=== PATIENT | male | born 1955 | race Caucasian/White ===

== ENCOUNTER 2019-02-25 06:45 | Emergency (ER) | payer OTHER ==
[~2019-02-25] VITALS: Ht 167.6 cm; Wt 86.2 kg
[2019-02-25 06:45] VITALS: BP 142/81
--- NOTE | 2019-02-25 06:48 | NUR ---
PT AMBULATED TO ER BED 7
--- NOTE | 2019-02-25 07:03 | NUR ---
PATIENT PRESENTS TO ED WITH C/O RT SIDED CHEST PAIN RADIATING TO UPPER BACK. PT STATES CP STARTED YESTERDAY. DENIES NAUSEA, VOMITING OR SOB. VSS. PATIENT STATES STABBING PAIN OF 7/10 AT THIS TIME; VSS; PATIENT POSITIONED FOR COMFORT;CONNECTED TO MONITOR. HOB ELEVATED; BEDRAILS UP X1; BED DOWN. PENDING ERMD EVALUATION.
--- NOTE | 2019-02-25 07:14 | NUR ---
XRAY AT BEDSIDE
--- NOTE | 2019-02-25 07:53 | NUR ---
LAB AT BEDSIDE
[2019-02-25 08:16] LABS: BASOPHILS # (AUTO) 0.1 K/uL (0.00-0.22); BASOPHILS % (AUTO) 0.7 % (0.0-2.0); EOSINOPHILS # (AUTO) 0.1 K/uL (0-0.4); EOSINOPHILS % (AUTO) 1.2 % (0.0-4.0); HEMATOCRIT 44.4 % (36-52); HEMOGLOBIN 14.9 g/dL (12.0-18.0); LYMPHOCYTES # (AUTO) 2.5 K/uL (2.0-11.5); LYMPHOCYTES % (AUTO) 34.4 % (20.5-51.1); MEAN CORPUSCULAR HEMOGLOBIN 30 pg (27-31); MEAN CORPUSCULAR HGB CONC 34 g/dL (33-37); MEAN CORPUSCULAR VOLUME 88.4 fL (80-94); MONOCYTES # (AUTO) 0.5 K/uL (0.8-1.0); MONOCYTES % (AUTO) 7.2 % (1.7-9.3); NEUTROPHILS # (AUTO) 4.2 K/uL (1.8-7.7); NEUTROPHILS % (AUTO) 56.5 % (42.2-75.2); PLATELET COUNT (AUTO) 233 K/uL (140-450); RED BLOOD CELL COUNT(AUTO) 5.02 MIL/uL (4.20-6.10); RED CELL DISTRIBUTION WIDTH 13.6 % (11.6-13.7); WHITE BLOOD COUNT (AUTO) 7.4 K/uL (4.8-10.8)
[2019-02-25 08:28] LABS: BARBITURATE, URINE NEG. ng/ml (NEG <=200); BENZODIAZEPINE, URINE NEG. ng/mL (NEG <=200); CANNABINOID, URINE NEG. ng/mL (NEG <=50); COCAINE, URINE NEG. ng/mL (NEG <=300); OPIATE, URINE NEG. ng/mL (NEG <=2000); PHENCYCLIDINE SCREEN,URINE NEG. ng/mL (NEG <=25)
[2019-02-25 08:32] LABS: PROTHROMBIN TIME 9.9 secs (10.8-13.4)
[2019-02-25] MEDS ORDERED: LISI5TAB18 PO (08:35)
[2019-02-25] MEDS ORDERED: SIMV20TA1 PO (08:35)
[2019-02-25] MEDS ORDERED: ASPI-1718 PO (08:35)
[2019-02-25] MEDS ORDERED: TAMS0.4C96 PO (08:35)
[2019-02-25 08:37] LABS: ALBUMIN 3.4 g/dL (3.4-5.0); ANION GAP 9.7 (8-16); CARBON DIOXIDE 29.2 mmol/L (21-32); CREATININE 0.9 mg/dL (0.7-1.3); POTASSIUM 4.9 mmol/L (3.5-5.1); TOTAL BILIRUBIN 0.2 mg/dL (0.0-1.0)
[2019-02-25 08:49] LABS: D-DIMER < 100 ng/ml (0-400)
[2019-02-25 08:52] LABS: MAGNESIUM 1.9 mg/dL (1.8-2.4)
--- NOTE | 2019-02-25 10:02 | NUR ---
Patient appears to be resting comfortably in bed. Pt states, "the chest pain comes and goes." pt states pain is 8/10 at this time. No sob, breathing even and unlabored. VSS. No new orders at this time.
--- NOTE | 2019-02-25 10:12 | NUR ---
Dr. Elizondo evaluating patient at bedside.
--- NOTE | 2019-02-25 10:26 | NUR ---
Dr. Hoskins evaluating patient at bedside.
--- NOTE | 2019-02-25 11:33 | NUR ---
Dr. Elizondo evaluating patient at bedside.
[2019-02-25] MEDS ORDERED: KETOROLAC 30 MG/ML VIAL IVP ONE (11:40)
[2019-02-25] MEDS ORDERED: MORPHINE SULFATE 4 MG/ML SYR IVP ONE (11:40)
[2019-02-25] MEDS ORDERED: ONDANSETRON 4 MG/2 ML VIAL IVP ONE (11:40)
[2019-02-25 12:55] VITALS: BP 135/82
--- NOTE | 2019-02-25 12:56 | NUR ---
Patient discharged with v/s stable. Written and verbal after care instructions given and explained. Patient alert, oriented and verbalized understanding of instructions. Ambulatory with steady gait. All questions addressed prior to discharge. ID band removed. 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 Rx of Voltaren cream given. Patient educated on indication of medication including possible reaction and side effects. Opportunity to ask questions provided and answered.
== END 2019-02-25 12:56 | disposition home or self-care (01) ==
LOC: MED 06:45
DX: R07.89 Other chest pain (principal); E11.9 Type 2 diabetes mellitus without complications; E66.9 Obesity, unspecified; E78.5 Hyperlipidemia, unspecified; I10 Essential (primary) hypertension; Z68.30 Body mass index [BMI] 30.0-30.9, adult; Z79.82 Long term (current) use of aspirin; Z79.899 Other long term (current) drug therapy
CPT/HCPCS: 36415; 71045; 71250; 80053; 80305; 81002; 83036; 83735; 83880; 84484; 85025; 85379; 85610; 93005; 96374; 96375; 99284; G0482; J1885; J2270; J2405; Q0092